=== PATIENT | male | born 1975 | race Caucasian/White ===

== ENCOUNTER → 2017-06-28 | Outpatient (CLI) | payer BC, OTHER ==
[~2017-06-28] MED LIST: ASA5UEC PO; GLUCOPHAGE1000 MG PO; GLUCOPHAGE500 MG PO; HYDROCHLOROTHIA25 M2 PO; LIPITOR40 MG PO; LISINOPRIL20 MG PO; LOPRESSOR25 PO; PACERONE 200 M200 M1 PO; PRILOSEC 20 MG20 MG PO; PROAIR HFA8.5 GM NASAL; TRAMADOL 50 MG50 MG PO
== END ==
LOC: RAD 11:59
DX: I51.7 Cardiomegaly (principal); Z95.1 Presence of aortocoronary bypass graft

== ENCOUNTER 2018-05-10 02:08 | Emergency (ER) | payer BC, OTHER ==
[~2018-05-10] VITALS: Ht 177.8 cm; Wt 131.5 kg
--- NOTE | ~2018-05-10 | EKG ---
[place] [address] [facility] [place] [address] ELECTROCARDIOGRAM REPORT Name: SNEHA DIAS Room #: DEP [facility] EASTRussel#: [id number] Admission: 05/10/18 Attend Phys: Discharge: 05/10/18 Date of : 77 Report #: [id number] THIS REPORT FOR: //name// [facility] ED Test Date: 2018-05-10 Test Time: 02:27:06 Pat Name: SNEHA DIAS Department: Room: Gender: Lending Advisor: [facility] : 1975 Requested By: Erendira Motley Order Number: [id number] MD: Nitish Guidry Measurements Intervals [place] Rate: 92 P: -7 NC: 143 QRS: 49 QRSD: 93 T: 42 QT: 338 QTc: 419 Interpretive Statements Sinus rhythm Minimal nonspecific ST segment abnormality Compared to ECG 05/28/2017 07:19:38 repolarization abnormality is no longer present Electronically Signed On 05-10-2018 9:02:49 DIRECTOR CHILD by Nitish Guidry [email or web address] <ELECTRONICALLY SIGNED> By: Nitish Giudry MD, [facility] 05/10/18 [id number] Nitish Guidry MD, FACC /EPI
[2018-05-10 02:21] LABS: URINE BILIRUBIN NEGATIVE (Negative); URINE BLOOD NEGATIVE (Negative); URINE CLARITY CLEAR; URINE COLOR YELLOW; URINE GLUCOSE-RANDOM* NEGATIVE (Negative); URINE KETONES NEGATIVE (Negative); URINE LEUKOCYTES-REFLEX NEGATIVE (Negative); URINE NITRITE-REFLEX NEGATIVE (Negative); URINE PROTEIN (DIPSTICK) NEGATIVE (Negative); URINE SPECIFIC GRAVITY >= 1.030 (1.005-1.035); URINE UROBILINOGEN 0.2 E.U./dl (0.2-1.0)
[2018-05-10 02:35] LABS: HEMATOCRIT 43.8 % (42.0-52.0); HEMOGLOBIN 14.7 gm/dL (14.0-18.0); MCH 30.5 pg (26.0-34.0); MCHC 33.6 g/dL (28.0-37.0); MCV 90.8 fL (80.0-100.0); RBC 4.82 mil/uL (4.50-6.00); RDW 13.6 % (10.5-14.5); WBC 7.7 thou/uL (4.0-11.0)
[2018-05-10 02:44] LABS: ANION GAP 12 mmol/L (7-16); BUN 18 mg/dL (7-18); CALCIUM 8.9 mg/dL (8.5-10.1); CHLORIDE 101 mmol/L (98-107); CO2 27 mmol/L (21-32); GLUCOSE 156 mg/dL (74-106); POTASSIUM 4.2 mmol/L (3.5-5.1); SODIUM 140 mmol/L (136-145)
[2018-05-10 02:48] LABS: AMP/METHAMP Negative (Negative); BARBITURATES Negative (Negative); BENZODIAZEPINES Negative (Negative); COCAINE Negative (Negative); METHADONE Negative (Negative); OPIATES Negative (Negative); PCP Negative (Negative)
[2018-05-10 02:51] LABS: ALBUMIN 3.9 g/dL (3.4-5.0); LIPASE 153 U/L (73-393); SGOT 50 U/L (15-37); SGPT 77 U/L (30-65); TOTAL BILIRUBIN 0.4 mg/dL (<0.1-1.0); TOTAL PROTEIN 7.8 g/dL (6.4-8.2); TROPONIN-I <0.06 ng/mL (<0.06)
[2018-05-10] MEDS ORDERED: PROTONIX 20 MG20 MG PO (04:19)
[2018-05-10 04:31] VITALS: BP 187/107
== END 2018-05-10 04:59 | disposition home or self-care (01) ==
LOC: ER 02:08
PROVIDERS: Student in an Organized Health Care Education/Training Program
DX: K29.70 Gastritis, unspecified, without bleeding (principal); I10 Essential (primary) hypertension; F17.210 Nicotine dependence, cigarettes, uncomplicated; Z88.0 Allergy status to penicillin